=== PATIENT | female | born 1990 ===

== ENCOUNTER → 2021-06-02 | Outpatient (REF) | payer BC ==
[2021-06-02 12:58] LABS: THYROID STIMULATING HORMONE 1.57 uIU/ML (0.358-3.740)
[2021-06-02 13:00] LABS: PROGESTERONE 36.28 NG/ML
== END ==
LOC: M LABDRAWC 11:28
PROVIDERS: ATTEND Obstetrics & Gynecology Reproductive Endocrinology
DX: O09.00 Supervision of pregnancy with history of infertility, unspecified trimester (principal); Z36.89 Encounter for other specified antenatal screening; Z3A.00 Weeks of gestation of pregnancy not specified